=== PATIENT | female | born 1960 | race Caucasian/White ===

== ENCOUNTER 2025-04-21 09:30 | Outpatient (RCR) | payer SELFPAY ==
--- NOTE | 2025-03-22 13:06 | HP.OTEVAL ---
Patient's Visit Information Visit Information Visit Information: ANALY MOTLEY is a 64 year old F, referred to Occupational Therapy by Fausto Ortiz PA-C, with a diagnosis of R distal radius and ulnar styloid fracture. Date of Evaluation: 03/22/25 Occupational Therapist: Millicent Sumner Subjective Subjective: This 64 year old female arrives with dx of R distal radius fracture and ulnar styloid fracture which occurred February 02 now 6 weeks and 6 days. No surgery splint from february 02 to the . then casted on february 16 which was removed Mar 18. Pt now presents with removable pre eloisa orthosis to wear when out in public. Pt is R hand dominant. Pt would like to see therapy in order to re gain ROM and strength for return to normal use of hand. 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: L 40# Lateral Pinch: L 11# Tripod Pinch: L 11# Strength Comments: to test R at later date once able Edema Wrist: R 17 cm L 15 cm Sensation Sensation Comments: denies numbness or tingling at this time Quick DASH-Disab of Arm,Shoulder& Hand Quick DASH Score: 61.3625 Goals Goal:: 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 equal to non affected UE for return to day to day functional tasks pt will improve R lateral and tripod pinch strength equal to non affected UE in order to return to day to day functional tasks Goal:: pt will improve R wrist ROM equal to non affected UE to open door knob pt will improve R thumb flexion equal to non affected UE in order to complete fine motor dexterity tasks pt will improve R forearm supination equal to non affected UE in order to open door and eat Goal:: pt will rate pain in R wrist with completion of functional tasks as 1/10 or less by discharge Goal:: Pt will demonstrate decreased R wrist swelling equal to non affected UE for improved ROM Goal:: pt will improve quick dash score by 10 points or more (61.36) for improved functional use of R dominant hand Rehabilitation General Assessment: This 64 year old female arrives with dx of R dominant hand distal radius fracture and ulnar styloid fracture. Pt presents this date 6 week and 6 days from DOI. pt presents with decreased ROM, increased swelling, pain as well as limited functional use of R dominant hand indicating need for OT services 1-2x a week for 4-6 weeks to address above concerns. OT provided pt with exercises for AROM to initiate at home as well as training in edema management. Rehabilitation Potential: Good Anticipated Interventions Anticipated Interventions: A/AAROM/PROM, Strengthening, Edema Control, Triggerpoint Release, Modalities, Fine Motor Coord/Yifan, Education re Diagnosis and Home Program Visit Plan Frequency: 1-2x /Week Duration: 4-6 Weeks General Plan: AROM/AAROM edema management hand strengthening progress to wrist stretch and strengthening once able TEXT: Thank you for the opportunity to evaluate your patient. For Medicare and Medicare HMO plans, please review the plan of care and approve it. It will need to be FAXED BACK to us at [phone] for Medicare purposes. Please let me know if there are questions or concerns regarding this plan of care. Physician Signature: Date:
--- NOTE | 2025-04-14 09:58 | OTREVAL_ITS ---
Re-Evaluation Intro: Fausto Ortiz PA-C, It has been my pleasure to treat ANALY MOTLEY over the last 7 visits for R distal radius and ulnar styloid fracture. Please see the progress note below for an update on the occupational therapy plan of care! Subjective Subjective: arrives 15 min late doing well pt is now 10 week 2 days out Objective Objective/Function: pt is making progress in ROM throughout POC. 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 does still demonstrate swelling of wrist which OT ed will come and go for apporx a year. 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 equal to non affected UE for return to day to day functional tasks pt will improve R lateral and tripod pinch strength equal to non affected UE in order to return to day to day functional tasks Goal:: pt will improve R wrist ROM equal to non affected UE to open door knob pt will improve R thumb flexion equal to non affected UE in order to complete fine motor dexterity tasks pt will improve R forearm supination equal to non affected UE in order to open door and eat Goal:: pt will rate pain in R wrist with completion of functional tasks as 1/10 or less by discharge Goal:: Pt will demonstrate decreased R wrist swelling equal to non affected UE for improved ROM Goal:: pt will improve quick dash score by 10 points or more (61.36) for improved functional use of R dominant hand Anticipated Interventions Anticipated Interventions Anticipated Interventions: A/AAROM/PROM, Strengthening, Edema Control, Triggerpoint Release, Modalities, Fine Motor Coord/Yifan, Education re Diagnosis and Home Program Re-Evaluation Ending Re-evaluation ending: Please do not hesitate to contact me at [phone] by phone or if you have questions or concerns regarding this new plan of care! Sincerely, Millicent Sumner
--- NOTE | 2025-04-21 09:47 | HP.OTDCSUM ---
Discharge Summary D/C Summary: It has been my pleasure to treat ANALY MOTLEY under orders from Fausto Ortiz PA-C, for the diagnosis of R distal radius and ulnar styloid fracture for a total of 9 visit(s). Please see the following information for a summary of their discharge status. 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 equal to non affected UE for return to day to day functional tasks pt will improve R lateral and tripod pinch strength equal to non affected UE in order to return to day to day functional tasks Goal:: pt will improve R wrist ROM equal to non affected UE to open door knob pt will improve R thumb flexion equal to non affected UE in order to complete fine motor dexterity tasks pt will improve R forearm supination equal to non affected UE in order to open door and eat Goal:: pt will rate pain in R wrist with completion of functional tasks as 1/10 or less by discharge Goal:: Pt will demonstrate decreased R wrist swelling equal to non affected UE for improved ROM Goal:: pt will improve quick dash score by 10 points or more (61.36) for improved functional use of R dominant hand Plan Plan: cont with AROM D/C Information Discharge Comments: This 64 year old female arrives with dx of radius fx. pt progressed throughout POC in ROM as well as functional use decreased pain and improved strength. discharge from POC at this time with pt to continue exercises at home for progression pt in agreeance. d/c sentence: If there are questions or concerns regarding this patient's occupational therapy, please fell free to call me at [phone]. Thank you for the referral of this patient. Sincerely, Millicent Sumner
== END 2025-04-21 12:22 | disposition home or self-care (01) ==
LOC: OT 09:30
PROVIDERS: PCP Family Medicine; Referring Provider Physician Assistant Surgical; Visit Provider Physician Assistant Surgical
DX: S52.551D Other extraarticular fracture of lower end of right radius, subsequent encounter for closed fracture with routine healing (principal); S52.611D Displaced fracture of right ulna styloid process, subsequent encounter for closed fracture with routine healing
CPT/HCPCS: 97110; 97140; 97166; 97530